=== PATIENT | female | born 1975 | race Caucasian/White ===

== ENCOUNTER → 2021-07-06 | Day surgery (SDC) | payer BC | END | disposition home or self-care (01) | LOC: JRADIR 09:44 | PROVIDERS: ATTEND Surgery Surgical Oncology | PROC: 0H9U3ZX Drainage of Left Breast, Percutaneous Approach, Diagnostic (ICD-10-PCS; principal; 2021-07-06) | DX: N64.9 Disorder of breast, unspecified (principal); Z53.8 Procedure and treatment not carried out for other reasons | CPT/HCPCS: 76642-TC-LT ==

== ENCOUNTER → 2021-08-05 | Day surgery (SDC) | payer BC | END | disposition home or self-care (01) | LOC: FRADUS-SUR 10:17 | PROVIDERS: ATTEND Surgery Surgical Oncology | PROC: 0HBT3ZX Excision of Right Breast, Percutaneous Approach, Diagnostic (ICD-10-PCS; principal; 2021-08-05) | DX: N60.11 Diffuse cystic mastopathy of right breast (principal); N60.21 Fibroadenosis of right breast; N60.31 Fibrosclerosis of right breast; N60.81 Other benign mammary dysplasias of right breast; N64.89 Other specified disorders of breast; R92.8 Other abnormal and inconclusive findings on diagnostic imaging of breast | CPT/HCPCS: 19085; 77065-TC; 88305-TC; A4648; A9579; C1887 ==